=== PATIENT | female | born 1950 | race Caucasian/White ===

== ENCOUNTER 2018-11-19 19:44 | Inpatient (IN) | payer MEDICARE ==
[~2018-11-19] VITALS: Ht 165.1 cm; Wt 68.0 kg
[2018-11-19 20:15] VITALS: BP 90/60
--- NOTE | 2018-11-19 20:15 | Emergency Room Report ---
History of Present Illness General Chief Complaint: Gastrointestinal Bleed Source: Patient Present Illness HPI Patient is a 68-year-old female presented after increased melanotic stool. Patient had reportedly had increased christos melena yesterday. She had not been vomiting. She had recently been taking aspirin. She denies any fever. She denies any significant pain. She had previously been noted to have prior history of kidney stones. She had recently seen her primary care physician Dr. Méndez Allergies: Coded Allergies: CODEINE (Verified Adverse Reaction, Intermediate, 11/19/18) Patient History Past Medical History: see triage record Last Menstrual Period: NA Now: No : 7 Para: 4 Reviewed Nursing Documentation: PMH: Agreed; PSxH: Agreed Nursing Documentation-PMH Past Medical History: No Stated History Review of Systems All Other Systems: negative except mentioned in HPI Physical Exam Vital Signs Date Time Temp Pulse Resp B/P (MAP) Pulse Ox O2 Delivery O2 Flow Rate FiO2 11/19/18 19:49 98.1 104 16 90/60 (70) 96 Room Air Sp02 EP Interpretation: reviewed, normal General Appearance: normal inspection, well appearing, no apparent distress, alert, GCS 15, non-toxic Head: atraumatic ENT: normal ENT inspection, hearing grossly normal, normal voice Neck: normal inspection, full range of motion, supple, no bony tend Respiratory: normal inspection, lungs clear, normal breath sounds, no respiratory distress, no retraction, no wheezing Cardiovascular #1: regular rate, rhythm, no edema Gastrointestinal: normal inspection, normal bowel sounds, non tender, soft, no guarding, no hernia Genitourinary: no CVA tenderness Musculoskeletal: normal inspection, back normal, normal range of motion Neurologic: normal inspection, alert, oriented x3, responsive, wool puller III-XII nml as tested, speech normal Psychiatric: normal inspection, judgement/insight normal, mood/affect normal Skin: normal inspection, normal color, no rash Medical Decision Making Diagnostic Impression: Primary Impression: Gastrointestinal hemorrhage ER Course Patient presented for increased melanotic stools. Differential diagnosis include was not limited to diverticular bleeding, colitis, peptic ulcer disease , arteriovenous malformation among others. Because of complexity of patient's case laboratory testing and imaging studies were ordered. Patient was noted to be initially slightly hypotensive and tachycardic. Patient was started on IV fluids as well as IV Pepcid. EKG interpreted by me showed Normal sinus rhythm without acute ST or T wave changes. Laboratory testing showed some elevation of Bun consistent with recent bleeding. Patient was endorsed to Dr. Clay pending authorization for admission. Last Vital Signs Date Time Temp Pulse Resp B/P (MAP) Pulse Ox O2 Delivery O2 Flow Rate FiO2 11/19/18 19:49 98.1 104 16 90/60 (70) 96 Room Air Status: improved Disposition: ADMITTED INPATIENT Condition: Serious Scott Tolentino MD Nov 19, 2018 20:14
--- NOTE | 2018-11-19 20:20 | NUR ---
ED Nurse Note: Patient walked in to ER from home c/o upper abdominal pain 09/12. Per patient she saw blood in her stool today, and it was dark red. AAO x4, VSS at this time, skin is dry, warm to touch.
[2018-11-19 20:52] LABS: BASOPHILS % (AUTO) 1.4 % (0.0-2.0); EOSINOPHILS % (AUTO) 1.5 % (0.0-3.0); HEMATOCRIT 30.8 % (37.0-47.0); HEMOGLOBIN 10.5 G/DL (12.0-16.0); LYMPHOCYTES % (AUTO) 44.7 % (20.0-45.0); MEAN CORPUSCULAR VOLUME 87 FL (80-99); MONOCYTES % (AUTO) 6.6 % (1.0-10.0); NEUTROPHILS % (AUTO) 45.8 % (45.0-75.0); PLATELET COUNT 258 K/UL (150-450); RED BLOOD COUNT 3.52 M/UL (4.20-5.40); RED CELL DISTRIBUTION WIDTH 12.3 % (11.6-14.8); WHITE BLOOD COUNT 4.7 K/UL (4.8-10.8)
[2018-11-19 20:58] LABS: ANION GAP 9 mmol/L (5-15); BLOOD UREA NITROGEN 37 mg/dL (7-18); CALCIUM 8.7 MG/DL (8.5-10.1); CARBON DIOXIDE 29 MMOL/L (21-32); CHLORIDE 100 MMOL/L (98-107); CREATININE 0.7 MG/DL (0.55-1.30); POTASSIUM 3.7 MMOL/L (3.5-5.1); SODIUM 138 MMOL/L (136-145)
[2018-11-19 21:03] LABS: ALANINE AMINOTRANSFERASE 20 U/L (12-78); ALBUMIN 3.8 G/DL (3.4-5.0); ALBUMIN/GLOBULIN RATIO 1.4 (1.0-2.7); ALKALINE PHOSPHATASE 75 U/L (46-116); ASPARTATE AMINO TRANSFERASE 16 U/L (15-37); BILIRUBIN,TOTAL 0.3 MG/DL (0.2-1.0)
[2018-11-19 22:00] LABS: APPEARANCE,URINE CLEAR; BILIRUBIN, URINE NEGATIVE (NEGATIVE); COLOR,URINE PALE YELLOW; GLUCOSE, URINE (UA) 4+ (NEGATIVE); KETONES,URINE NEGATIVE (NEGATIVE); LEUKOCYTE ESTERASE ,URINE NEGATIVE (NEGATIVE); NITRITE,URINE NEGATIVE (NEGATIVE); PH,URINE 5 (4.5-8.0); PROTEIN,URINE NEGATIVE (NEGATIVE); UROBILINOGEN,URINE NORMAL MG/DL (0.0-1.0)
--- NOTE | 2018-11-19 23:10 | NUR ---
NURSE NOTES: Received pt from ED via gurney. Pt transferred to unit and bed without any incident. Family at bedside. Pt is A/Ox4. Ong pt to unit, room, and hospital policies. Received report from NAMAN Moody. medical radiation dosimetrist is in placed, IV site intact, asymptomatic, and patent. Bed is in the lowest position and locked. Call light within reach. Belongings list checked. No signs/symptoms of acute distress noted at this time. Received admission orders from Dr. Ocampo.
[2018-11-19] MEDS: D5NS 1,000 ML IV SCH (23:54)
[2018-11-20] VITALS (11 sets, daily range): BP systolic 90–115; BP diastolic 52–83
--- NOTE | 2018-11-20 01:43 | NUR ---
ED Nurse Note: Patient was admited and transfered to [facility], due to lower GI bleeding. Patient was transfered via gurney by ACLS protocol, with all belongings. AAO x4, VSS at this time.
[2018-11-20 06:42] LABS: HEMATOCRIT 26.8 % (37.0-47.0); MEAN CORPUSCULAR VOLUME 91 FL (80-99); PLATELET COUNT 236 K/UL (150-450); RED BLOOD COUNT 2.94 M/UL (4.20-5.40); RED CELL DISTRIBUTION WIDTH 12.9 % (11.6-14.8); WHITE BLOOD COUNT 3.1 K/UL (4.8-10.8)
[2018-11-20] MEDS ORDERED: fentaNYL 100 mcg/2 mL IV PRN (07:00)
[2018-11-20] MEDS ORDERED: DiphenhydrAMINE 50mg/ml Inj IVP PRN (07:00)
[2018-11-20] MEDS ORDERED: Midazolam 2mg/2ml Inj IVP PRN (07:00)
[2018-11-20] MEDS ORDERED: Atropine Sulfate 0.4mg/ml inj IVP PRN (07:00)
--- NOTE | 2018-11-20 07:13 | Anethesia Preoperative Eval ---
Anesthesia Pre-op PMH/ROS General Date of Evaluation: Nov 20, 2018 Time of Evaluation: 07:02 Anesthesiologist: matt ASA Score: ASA 2 - kidney stones Mallampati Score Class I : Soft palate, uvula, fauces, pillars visible Class II: Soft palate, uvula, fauces visible Class III: Soft palate, base of uvula visible Class IV: Only hard plate visible Mallampati Classification: Class II Surgeon: cinthya Diagnosis: gi bleed Surgical Procedure: egd Anesthesia History: none Social History: smoking - nonsmoker Family History: no anesthesia problems Allergies: Coded Allergies: NIACIN (Verified Allergy, Unknown, 11/20/18) CODEINE (Verified Adverse Reaction, Intermediate, 11/19/18) Medications: see eMAR Patient NPO?: Yes Past Medical History Gastrointestinal/Genitourinary: Reports: other - nephrolithiasis Anesthesia Pre-op Phys. Exam Physician Exam Last Vital Signs Date Time Temp Pulse Resp B/P (MAP) Pulse Ox O2 Delivery O2 Flow Rate FiO2 11/20/18 04:00 98.4 92 18 90/52 (65) 100 11/20/18 01:39 Room Air Constitutional: NAD Neurologic: CN 2-12 intact Cardiovascular: RRR Respiratory: CTA Gastrointestinal: S/NT/ND Airway Exam Mallampati Score: Class II MO: limited Neck: flexible TMD: 2fb ROM: limited Anesthesia Pre-op A/P Labs Hematology Test 11/19/18 20:28 11/20/18 06:00 White Blood Count 4.7 K/UL (4.8-10.8) L Pending Red Blood Count 3.52 M/UL (4.20-5.40) L Pending Hemoglobin 10.5 G/DL (12.0-16.0) L Pending Hematocrit 30.8 % (37.0-47.0) L Pending Mean Corpuscular Volume 87 FL (80-99) Pending Mean Corpuscular Hemoglobin 29.9 PG (27.0-31.0) Pending Mean Corpuscular Hemoglobin Concent 34.2 G/DL (32.0-36.0) Pending Red Cell Distribution Width 12.3 % (11.6-14.8) Pending Platelet Count 258 K/UL (150-450) Pending Mean Platelet Volume 4.7 FL (6.5-10.1) L Pending Neutrophils (%) (Auto) 45.8 % (45.0-75.0) Pending Lymphocytes (%) (Auto) 44.7 % (20.0-45.0) Pending Monocytes (%) (Auto) 6.6 % (1.0-10.0) Pending Eosinophils (%) (Auto) 1.5 % (0.0-3.0) Pending Basophils (%) (Auto) 1.4 % (0.0-2.0) Pending Coagulation Test 11/19/18 20:28 Prothrombin Time 10.2 SEC (9.30-11.50) Prothromb Time International Ratio 1.0 (0.9-1.1) Activated Partial Thromboplast Time 27 SEC (23-33) Chemistry Test 11/19/18 20:28 11/20/18 06:00 Sodium Level 138 MMOL/L (136-145) Pending Potassium Level 3.7 MMOL/L (3.5-5.1) Pending Chloride Level 100 MMOL/L (98-107) Pending Carbon Dioxide Level 29 MMOL/L (21-32) Pending Anion Gap 9 mmol/L (5-15) Blood Urea Nitrogen 37 mg/dL (7-18) H Pending Creatinine 0.7 MG/DL (0.55-1.30) Pending Estimat Glomerular Filtration Rate > 60 mL/min (>60) Pending Glucose Level 119 MG/DL (74-106) H Pending Calcium Level 8.7 MG/DL (8.5-10.1) Pending Total Bilirubin 0.3 MG/DL (0.2-1.0) Aspartate Amino Transf (AST/SGOT) 16 U/L (15-37) Alanine Aminotransferase (ALT/SGPT) 20 U/L (12-78) Alkaline Phosphatase 75 U/L (46-116) Troponin I 0.000 ng/mL (0.000-0.056) Total Protein 6.5 G/DL (6.4-8.2) Albumin 3.8 G/DL (3.4-5.0) Globulin 2.7 g/dL Albumin/Globulin Ratio 1.4 (1.0-2.7) Studies Pre-op Studies: EKG - nsr Risk Assessment & Plan Assessment: asa2 Plan: mac Status Change Before Surgery: No Pre-Antibiotics Drug: Glenda Leary MD Nov 20, 2018 07:13
[2018-11-20 07:16] LABS: ANION GAP 12 mmol/L (5-15); BLOOD UREA NITROGEN 23 mg/dL (7-18); CALCIUM 8.1 MG/DL (8.5-10.1); CARBON DIOXIDE 23 MMOL/L (21-32); CHLORIDE 109 MMOL/L (98-107); CREATININE 0.5 MG/DL (0.55-1.30); POTASSIUM 3.3 MMOL/L (3.5-5.1); SODIUM 144 MMOL/L (136-145)
--- NOTE | 2018-11-20 07:40 | NUR ---
HAND-OFF: Report given to NAMAN Fitzgerald.
--- NOTE | 2018-11-20 07:41 | NUR ---
NURSE NOTES: Report received from NAMAN uHerta. Pt is resting in bed, sleeping. Breathing is even and unlabored in room air. No acute distress noted at this time. Will report the doctor abnormal potassium value. Bed in lowest position with brake engaged and side rails up x2. Call light and side table placed within reach. Will continue to monitor.
[2018-11-20] MEDS: D5NS 1,000 ML IV SCH ×2 (09:31→18:40)
--- NOTE | 2018-11-20 09:55 | GI Initial Consult Note ---
History of Present Illness General Date patient seen: Nov 20, 2018 Time patient seen: 09:52 Reason for Hospitalization: Gastrointestinal Bleed Referring physician: APRIL SALAS Reason for Consultation: GI BLEED Present Illness HPI Patient is a 68-year-old female presented after increased melanotic stool. Patient had reportedly had increased christos melena yesterday. She had not been vomiting. She had recently been taking aspirin. She denies any fever. She denies any significant pain. She had previously been noted to have prior history of kidney stones. She had recently seen her primary care physician Dr. Honey MCMILLAN consulted for reported melena. Pt seen, awake A&Ox4 NAD appeared very anxious. Patient reported episodes of melena. Has complaint of nausea without vomiting. Presents today with Hgb of 9.0. Potassium of 3.3 No known history of endoscopy. Allergies: Coded Allergies: NIACIN (Verified Allergy, Unknown, 11/20/18) CODEINE (Verified Adverse Reaction, Intermediate, 11/19/18) Patient History History Provided By: Patient, Medical Record PMH Narrative Past Medical History: see triage record Last Menstrual Period: NA Now: No : 7 Para: 4 Reviewed Nursing Documentation: PMH: Agreed; PSxH: Agreed Nursing Documentation-PMH Past Medical History: No Stated History Social History: Denies: smoking, alcohol use, drug use, other Review of Systems All Other Systems: negative except mentioned in HPI Physical Exam Vital Signs Date Time Temp Pulse Resp B/P (MAP) Pulse Ox O2 Delivery O2 Flow Rate FiO2 11/19/18 19:49 98.1 104 16 90/60 (70) 96 Room Air Sp02 EP Interpretation: reviewed, normal Labs Laboratory Tests Test 11/19/18 20:28 11/19/18 21:30 11/20/18 06:00 White Blood Count 4.7 K/UL (4.8-10.8) L 3.1 K/UL (4.8-10.8) L Red Blood Count 3.52 M/UL (4.20-5.40) L 2.94 M/UL (4.20-5.40) L Hemoglobin 10.5 G/DL (12.0-16.0) L 9.0 G/DL (12.0-16.0) L Hematocrit 30.8 % (37.0-47.0) L 26.8 % (37.0-47.0) L Mean Corpuscular Volume 87 FL (80-99) 91 FL (80-99) Mean Corpuscular Hemoglobin 29.9 PG (27.0-31.0) 30.7 PG (27.0-31.0) Mean Corpuscular Hemoglobin Concent 34.2 G/DL (32.0-36.0) 33.7 G/DL (32.0-36.0) Red Cell Distribution Width 12.3 % (11.6-14.8) 12.9 % (11.6-14.8) Platelet Count 258 K/UL (150-450) 236 K/UL (150-450) Mean Platelet Volume 4.7 FL (6.5-10.1) L 5.8 FL (6.5-10.1) L Neutrophils (%) (Auto) 45.8 % (45.0-75.0) % (45.0-75.0) Lymphocytes (%) (Auto) 44.7 % (20.0-45.0) % (20.0-45.0) Monocytes (%) (Auto) 6.6 % (1.0-10.0) % (1.0-10.0) Eosinophils (%) (Auto) 1.5 % (0.0-3.0) % (0.0-3.0) Basophils (%) (Auto) 1.4 % (0.0-2.0) % (0.0-2.0) Prothrombin Time 10.2 SEC (9.30-11.50) Prothromb Time International Ratio 1.0 (0.9-1.1) Activated Partial Thromboplast Time 27 SEC (23-33) Sodium Level 138 MMOL/L (136-145) 144 MMOL/L (136-145) Potassium Level 3.7 MMOL/L (3.5-5.1) 3.3 MMOL/L (3.5-5.1) L Chloride Level 100 MMOL/L (98-107) 109 MMOL/L (98-107) H Carbon Dioxide Level 29 MMOL/L (21-32) 23 MMOL/L (21-32) Anion Gap 9 mmol/L (5-15) 12 mmol/L (5-15) Blood Urea Nitrogen 37 mg/dL (7-18) H 23 mg/dL (7-18) H Creatinine 0.7 MG/DL (0.55-1.30) 0.5 MG/DL (0.55-1.30) L Estimat Glomerular Filtration Rate > 60 mL/min (>60) > 60 mL/min (>60) Glucose Level 119 MG/DL (74-106) H 108 MG/DL (74-106) H Calcium Level 8.7 MG/DL (8.5-10.1) 8.1 MG/DL (8.5-10.1) L Total Bilirubin 0.3 MG/DL (0.2-1.0) Aspartate Amino Transf (AST/SGOT) 16 U/L (15-37) Alanine Aminotransferase (ALT/SGPT) 20 U/L (12-78) Alkaline Phosphatase 75 U/L (46-116) Troponin I 0.000 ng/mL (0.000-0.056) Total Protein 6.5 G/DL (6.4-8.2) Albumin 3.8 G/DL (3.4-5.0) Globulin 2.7 g/dL Albumin/Globulin Ratio 1.4 (1.0-2.7) Urine Color Pale yellow Urine Appearance Clear Urine pH 5 (4.5-8.0) Urine Specific [place] 1.010 (1.005-1.035) Urine Protein Negative (NEGATIVE) Urine Glucose (UA) 4+ (NEGATIVE) H Urine Ketones Negative (NEGATIVE) Urine Blood Negative (NEGATIVE) Urine Nitrite Negative (NEGATIVE) Urine Bilirubin Negative (NEGATIVE) Urine Urobilinogen Normal MG/DL (0.0-1.0) Urine Leukocyte Esterase Negative (NEGATIVE) Urine RBC 0 /HPF (0 - 2) Urine WBC 0 /HPF (0 - 2) Urine Squamous Epithelial Cells Occasional /LPF Urine Bacteria None /HPF (NONE) Neutrophils % (Manual) Pending Lymphocytes % (Manual) Pending Platelet Estimate Pending Platelet Morphology Pending General Appearance: well appearing, no apparent distress, alert Head: normocephalic EENT: PERRL/EOMI, normal ENT inspection Neck: supple Respiratory: normal breath sounds, no respiratory distress Cardiovascular: normal rate Gastrointestinal: normal inspection, non tender, soft, normal bowel sounds, non -distended Rectal: deferred Genitourinary: no CVA tenderness Musculoskeletal: normal inspection, back normal Neurologic: normal inspection, alert, oriented x3, responsive Psychiatric: normal inspection, judgement/insight normal, memory normal Skin: normal inspection, normal color, no rash, warm/dry, palpation normal, well hydrated Lymphatic: normal inspection, no adenopathy Current Medications Current Medications Medications (Trade) Dose Ordered Sig/Richi Route PRN Reason Start Time Stop Time Status Last Admin Dose Admin Acetaminophen (Tylenol) 650 mg Q4H PRN ORAL Mild Pain (Pain Scale 1-3) 11/19/18 22:30 12/19/18 22:29 11/20/18 09:30 Al Hydroxide/Mg Hydroxide (Mylanta) 15 ml Q1H PRN ORAL gi upset 11/20/18 07:00 11/20/18 15:00 Atropine Sulfate (Atropine 0.4mg/ ml) 0.5 mg Q5M PRN IVP bpm less than 45 11/20/18 07:00 11/20/18 15:00 Dextrose (Dextrose 50%) 25 ml Q30M PRN IV Hypoglycemia 11/19/18 22:30 12/19/18 22:29 Dextrose (Dextrose 50%) 50 ml Q30M PRN IV Hypoglycemia 11/19/18 22:30 12/19/18 22:29 Dextrose/Sodium Chloride 1,000 ml @ 100 mls/hr Q10H IV 11/19/18 23:17 12/19/18 23:16 11/20/18 09:31 Diphenhydramine HCl (Benadryl) 25 mg Q15M PRN IVP Itching 11/20/18 07:00 11/20/18 15:00 Famotidine (Pepcid) 40 mg DAILY ORAL 11/20/18 09:00 12/20/18 08:59 11/20/18 09:31 Fentanyl Citrate (Sublimaze 100 mcg/2 mL) 25 mcg Q10M PRN IV Moderate Pain (Pain Scale 4-6) 11/20/18 07:00 11/20/18 15:00 Hydralazine HCl (Apresoline) 5 mg Q30M PRN IV SBP>160 /DBP>90 11/20/18 07:00 11/20/18 15:00 Midazolam HCl (Versed 2mg/2ml vial) 1 mg Q15M PRN IVP For Anxiety 11/20/18 07:00 11/20/18 15:00 Ondansetron HCl (Zofran) 4 mg Q1H PRN IVP Nausea & Vomiting 11/20/18 07:00 11/20/18 15:00 Ondansetron HCl (Zofran) 4 mg Q6H PRN IVP Nausea & Vomiting 11/19/18 22:30 12/19/18 22:29 GI: Plan Problems: (1) Gastrointestinal hemorrhage (2) Anemia Plan EGD scheduled for today. - maintain NPO + IVFs - hold all blood thinners prn transfusions ppi will follow with additional recommendations post procedure Discussed with Dr. Rodgers. Thank you for this patient referral, we will follow. The patient was seen and examined at bedside and all new and available data was reviewed in the patients chart. I agree with the above findings, impression and plan. (Patient seen earlier today. Signature stamp does not reflect patient encounter time.). - MD Mary Perez,[facility] EXECUTIVE ADMIN Nov 20, 2018 09:55
[2018-11-20] MEDS ORDERED: Propofol 200mg/20ml IV ONE (10:00)
[2018-11-20] MEDS ORDERED: Lidocaine 1% MPF 10mg/ml 5ml ONE (10:00)
[2018-11-20] MEDS ORDERED: NS 500ML IVPB ONE (10:28)
--- NOTE | 2018-11-20 10:56 | Pre-Procedure Note/Attestation ---
Pre-Procedure Note/Attestation Complete Prior to Procedure Planned Procedure: not applicable Procedure Narrative: EGD Indications for Procedure Pre-Operative Diagnosis: GIB Attestation I attest that I discussed the nature of the procedure; its benefits; risks and complications; and alternatives (and the risks and benefits of such alternatives ), prior to the procedure, with the patient (or the patient's legal sales representative [employer]). I attest that, if there was a reasonable possibility of needing a blood transfusion, the patient (or the patient's legal sales representative [employer]) was given the [facility] standardized written summary, pursuant to the [employer] [place] Blood Safety Act ([place] Health and Safety Code # 1645, as amended). I attest that I re-evaluated the patient just prior to the surgery and that there has been no change in the patient's H&P, except as documented below: Julio C Rodgers MD Nov 20, 2018 10:56
--- NOTE | 2018-11-20 11:06 | Endoscopy Procedure Note ---
Endoscopy Procedure Note General Indication for Procedure: GIB Procedures Performed: EGD Operative Findings/Diagnosis: gu Specimen: yes Pt Tolerated Procedure Well: Yes Estimated Blood Loss: none Anesthesia Anesthesiologist: LINDY Anesthesia: MAC Inserted Devices Implant(s) used?: No GI Core Measures 50 yrs or older w/o bx or poly: Not Applicable 10yrs. F/U recommended: Not Applicable Julio C Rodegrs MD Nov 20, 2018 11:06
--- NOTE | 2018-11-20 11:15 | History and Physical Report ---
DATE OF ADMISSION: 11/19/2018 REASON FOR ADMISSION: Gastrointestinal bleed. HISTORY OF PRESENT ILLNESS: The patient is a 68-year-old female, who presented complaining of dark tarry melanotic stool. The patient stated that it had increased in frequency over the day prior to onset, she presented to emergency room for further evaluation and care. No nausea or vomiting. No chest pain. The patient has been taking some aspirin. She was feeling otherwise well. No shortness of breath. ALLERGIES: Codeine. PAST MEDICAL HISTORY: None. FAMILY HISTORY: Positive for hypertension. PAST SURGICAL HISTORY: Noncontributory. REVIEW OF SYSTEMS: NEUROLOGIC: The patient denies headache, change in vision, syncope, or presyncopal episodes. CARDIOVASCULAR: No current chest pain, palpitations, or angina. PULMONARY: No difficulty breathing, productive cough, sputum. GASTROINTESTINAL/GENITOURINARY: The patient having dark tarry black stools. No nausea, vomiting, or diarrhea. ENDOCRINOLOGY: No night sweats, fevers, or chills. MUSCULOSKELETAL: The patient feeling tired and fatigue. LABORATORY DATA: Laboratories dated November 19, 2018, sodium 138, potassium 3.7, creatinine 0.7, BUN 37. Troponin 0. White cell count 4.7, hemoglobin 10.5, and platelet count 258. PHYSICAL EXAMINATION: VITAL SIGNS: Blood pressure 90/52, respiratory rate 12, pulse 92, temperature 98.4, and 100% oxygen saturation on room air. GENERAL: The patient awake, alert, otherwise in distress. HEENT: Extraocular muscles intact. No lymphadenopathy noted. CARDIOVASCULAR: S1, S2. No rubs or gallops. PULMONARY: Clear to auscultation bilaterally. No rales, rhonchi, or wheezes. ABDOMEN: Nondistended and nontender. EXTREMITIES: No edema noted. ASSESSMENT AND PLAN: 1. Gastrointestinal bleed. Dark tarry melanotic stools. Gastroenterology has been consulted and colonoscopy and EGD is pending. The patient is NPO. Hemoglobin currently stable 10.5. 2. DVT prophylaxis with SCDs. 3. GI prophylaxis with famotidine. Johnathan Ocampo MD DR: JULIAN/RASTA JOB#: [id number] CC:
--- NOTE | 2018-11-20 11:48 | NUR ---
NURSE NOTES: Or Nurse (Jose) and gave report for Mrs. Batista, S/P EGD with Biopsy patient has gastritis and gastric ulcer. Patient will start Regular diet. New RX in chart. Vital sign stable.
--- NOTE | 2018-11-20 12:33 | Immediate Post-Op Evaluation ---
Immediate Post-Op Evalulation Immediate Post-Op Evalulation Procedure: egd w/bx Date of Evaluation: Nov 20, 2018 Time of Evaluation: 11:26 IV Fluids: 150ml 0.9ns Blood Products: none Estimated Blood Loss: negligible Blood Pressure Systolic: 95 Blood Pressure Diastolic: 63 Pulse Rate: 91 Respiratory Rate: 18 O2 Sat by Pulse Oximetry: 100 Temperature (Fahrenheit): 97.8 Pain Score (1-10): 0 Nausea: No Vomiting: No Complications none Patient Status: awake, reacts, patent Hydration Status: adequate Drug: Glenda Leary MD Nov 20, 2018 12:33
--- NOTE | 2018-11-20 12:35 | 48 Hour Post Anesthesia Eval ---
Post Anesthesia Evaluation Procedure: egd w/bx Date of Evaluation: Nov 20, 2018 Time of Evaluation: 11:28 Blood Pressure Systolic: 100 0: 62 Pulse Rate: 81 Respiratory Rate: 18 Temperature (Fahrenheit): 97.8 O2 Sat by Pulse Oximetry: 100 Airway: patent Nausea: No Vomiting: No Pain Intensity: 0 Hydration Status: adequate Cardiopulmonary Status: stable Mental Status/LOC: patient returned to baseline Post-Anesthesia Complications: none Follow-up care needed: N/A Glenda Hills MD Nov 20, 2018 12:35
--- NOTE | 2018-11-20 13:22 | Discharge Instructions ---
Discharge Instructions Discharge Instructions Services at Discharge: day care Diet: regular Resume Normal Activity?: Yes Activity: light activity Follow Up Orders Follow up with PCP 1 week For Congestive Heart Failure Reminder Report to your physician any weight gain of 5 pounds or more in one week. Johnathan Ocampo MD Nov 20, 2018 13:22
--- NOTE | 2018-11-20 15:44 | NUR ---
CASE MANAGEMENT:REVIEW 68 YR OLD FEMALE FROM HOME TO ER CC; BLOOD IN STOOL. RT ARM PAIN. HEADACHE. ABDOMINAL PAIN SI: LGIB 98.0 104 16 90/60 96% ON RA H/H-10.5/30.8 IS: 1L NS BOLUS IV PEPCID : TO TELEMETRY IS: EGD
[2018-11-20] MEDS ORDERED: Bisacodyl EC 5mg tab ORAL ONE (16:00)
--- NOTE | 2018-11-20 16:00 | Procedure Note ---
DATE OF PROCEDURE: 11/20/2018 SURGEON: Julio C Rodgers M.D. PROCEDURE: Upper endoscopy with biopsy. ANESTHESIA: Per Dr. Glenda Mojica. INSTRUMENT: Olympus adult flexible upper endoscope. INDICATION: GI bleeding. REASON FOR PROCEDURE: The procedure, risks, benefits, and possible consequences, including hemorrhage, aspiration, perforation and infection, and alternative treatments, were explained to the patient/legal guardian by Dr. Julio C Rodgers and the patient/legal guardian understood and accepted these risks. PROCEDURE IN DETAIL: After informed consent was obtained and the patient was adequately sedated, Olympus upper endoscope was advanced from mouth into the second portion of duodenum and retroflexion was performed in the stomach. The patient had a shallow small less than 1 cm ulcer in the prepyloric region at about 9 o'clock position without any adherent clot or visible vessel. There was also some evidence of gastritis. Random biopsy from antrum and body was obtained to evaluate for H. pylori infection. No evidence of any other source for bleeding. The patient tolerated the procedure very well without any complication. SUMMARY OF FINDINGS: 1. Small gastric ulcer clean base without any visible vessel or adherent clot. 2. Gastritis status post biopsy. RECOMMENDATIONS: Start diet and advance as tolerated. The patient to be on a PPI daily. Follow up biopsy results and treat for H. pylori if it is positive. The patient to follow up with Dr. Méndez, her primary nutritional health coach as an outpatient. Julio C Rodgers M.D. DR: SAMMI JOB#: [id number] CC:
--- NOTE | 2018-11-20 16:03 | Cardiology Report ---
APPROVED REPORT EKG Measurement Heart [id number] Normal sinus rhythm Normal ECG
[2018-11-20] MEDS: Nulytely 4L ORAL ONE ×2 (16:40→17:05)
--- NOTE | 2018-11-20 19:25 | NUR ---
HAND-OFF: Report given to NAMAN De Leon.
--- NOTE | 2018-11-20 19:26 | NUR ---
NURSE NOTES: Received pt from NAMAN Boles. Pt is awake and resting in bed. IV site intact. Pt in no distress. Bed in lowest position, call light within reach, bed in lowest position. Will continue with plan of care.
[2018-11-20] MEDS ORDERED: Polyethylene Glycol 238gm bottle ORAL SCH (20:00)
[2018-11-20] MEDS ORDERED: Magnesium Citrate Liq Btl ORAL SCH (20:30)
[2018-11-20] MEDS ORDERED: Fleet's Enema 133ml RECTAL ONE (23:00)
[2018-11-20] MEDS ORDERED: HYDROcodone/Acetamin 5/325 tab ORAL PRN (23:45)
[2018-11-21] VITALS (7 sets, daily range): BP systolic 95–114; BP diastolic 55–69
[2018-11-21] MEDS ORDERED: traMADol 50mg tab ORAL PRN
[2018-11-21 05:17] LABS: BASOPHILS % (AUTO) 0.9 % (0.0-2.0); EOSINOPHILS % (AUTO) 1.8 % (0.0-3.0); HEMATOCRIT 26.8 % (37.0-47.0); HEMOGLOBIN 8.8 G/DL (12.0-16.0); LYMPHOCYTES % (AUTO) 28.7 % (20.0-45.0); MEAN CORPUSCULAR VOLUME 91 FL (80-99); MONOCYTES % (AUTO) 5.1 % (1.0-10.0); NEUTROPHILS % (AUTO) 63.5 % (45.0-75.0); PLATELET COUNT 247 K/UL (150-450); RED BLOOD COUNT 2.95 M/UL (4.20-5.40); RED CELL DISTRIBUTION WIDTH 12.7 % (11.6-14.8); WHITE BLOOD COUNT 3.7 K/UL (4.8-10.8)
[2018-11-21] MEDS: D5NS 1,000 ML IV SCH (05:17)
[2018-11-21 05:38] LABS: ANION GAP 7 mmol/L (5-15); BLOOD UREA NITROGEN 8 mg/dL (7-18); CALCIUM 8.1 MG/DL (8.5-10.1); CARBON DIOXIDE 29 MMOL/L (21-32); CHLORIDE 108 MMOL/L (98-107); CREATININE 0.6 MG/DL (0.55-1.30); POTASSIUM 3.5 MMOL/L (3.5-5.1); SODIUM 144 MMOL/L (136-145)
--- NOTE | 2018-11-21 07:01 | Nephrology Progress Note ---
Assessment/Plan Assessment/Plan: A/P 1) Anemia - EGD with ulcer and gastristis - colonoscopy today - DC afterwards if cleared by GI 2) Dehydrations- IVFs DC today post colonoscopy Subjective Date patient seen: Nov 21, 2018 Time patient seen: 06:59 ROS Limited/Unobtainable: No Allergies: Coded Allergies: NIACIN (Verified Allergy, Unknown, 11/20/18) CODEINE (Verified Adverse Reaction, Intermediate, 11/19/18) Subjective Patient awaiting colonoscopy. Objective Last 24 Hour Vital Signs Date Time Temp Pulse Resp B/P (MAP) Pulse Ox O2 Delivery O2 Flow Rate FiO2 11/21/18 04:00 92 11/21/18 04:00 97.7 92 19 96/62 (73) 99 11/21/18 00:00 85 11/21/18 00:00 97.6 85 19 114/69 (84) 100 11/20/18 21:00 Room Air 11/20/18 20:00 85 11/20/18 20:00 97.4 85 19 115/67 (83) 99 11/20/18 16:00 97.2 82 16 93/60 (71) 98 11/20/18 16:00 84 11/20/18 12:35 81 18 100 11/20/18 12:33 91 18 100 11/20/18 12:00 97 11/20/18 11:44 98.0 80 16 103/83 100 Nasal Cannula 3 11/20/18 11:34 79 18 103/71 100 Nasal Cannula 3 11/20/18 11:24 81 15 100/62 100 Nasal Cannula 3 11/20/18 11:19 82 17 97/67 100 Nasal Cannula 3 11/20/18 11:14 97.8 91 18 95/63 100 Nasal Cannula 3 11/20/18 09:00 Room Air 11/20/18 08:00 88 11/20/18 08:00 97.7 90 16 93/65 (74) 99 Intake and Output 11/20/18 11/21/18 18:59 06:59 Intake Total 590 ml Balance 590 ml Intake Oral 440 ml IV Total 150 ml # Voids 2 Laboratory Tests 11/21/18 04:53: White Blood Count 3.7L, Red Blood Count 2.95L, Hemoglobin 8.8L, Hematocrit 26.8L , Mean Corpuscular Volume 91, Mean Corpuscular Hemoglobin 29.7, Mean Corpuscular Hemoglobin Concent 32.8, Red Cell Distribution Width 12.7, Platelet Count 247, Mean Platelet Volume 5.6L, Neutrophils (%) (Auto) 63.5, Lymphocytes ( %) (Auto) 28.7, Monocytes (%) (Auto) 5.1, Eosinophils (%) (Auto) 1.8, Basophils (%) (Auto) 0.9, Prothrombin Time 10.4, Prothromb Time International Ratio 1.0, Activated Partial Thromboplast Time 22L, Sodium Level 144, Potassium Level 3.5, Chloride Level 108H, Carbon Dioxide Level 29, Anion Gap 7, Blood Urea Nitrogen 8 , Creatinine 0.6, Estimat Glomerular Filtration Rate > 60, Glucose Level 113H, Calcium Level 8.1L Height (Feet): 5 Height (Inches): 5.00 Weight (Pounds): 149 General Appearance: no apparent distress, alert EENT: normal ENT inspection Neck: normal alignment, supple Cardiovascular: normal rate, regular rhythm Respiratory/Chest: lungs clear, normal breath sounds Abdomen: non tender, soft Edema: no edema noted Arm (L), no edema noted Arm (R), no edema noted Leg (L), no edema noted Leg (R), no edema noted Pedal (L), no edema noted Pedal (R), no edema noted Generalized Johnathan Ocampo MD Nov 21, 2018 07:01
--- NOTE | 2018-11-21 07:32 | NUR ---
HAND-OFF: Report given to NAMAN Keith. Endorsed plan of care.
--- NOTE | 2018-11-21 07:32 | NUR ---
NURSE NOTES: Report received from NAMAN Chavez. Patient AOx4. In RA. Denies any pain or SOB. Aware of Colonoscopy procedure scheduled for today. NPO for procedure. L FA 20g IV running D5NS at 100. Site intact. Bed on lowest position, side rails upx2, brakes engaged. Call light within easy reach.
--- NOTE | 2018-11-21 10:42 | Pre-Procedure Note/Attestation ---
Pre-Procedure Note/Attestation Complete Prior to Procedure Planned Procedure: not applicable Procedure Narrative: colonoscopy Indications for Procedure Pre-Operative Diagnosis: GIB Attestation I attest that I discussed the nature of the procedure; its benefits; risks and complications; and alternatives (and the risks and benefits of such alternatives ), prior to the procedure, with the patient (or the patient's legal product representative). I attest that, if there was a reasonable possibility of needing a blood transfusion, the patient (or the patient's legal product representative) was given the [facility] standardized written summary, pursuant to the [employer] Blood Safety Act ([place] Health and Safety Code # 1645, as amended). I attest that I re-evaluated the patient just prior to the surgery and that there has been no change in the patient's H&P, except as documented below: Julio C Rodgers MD Nov 21, 2018 10:42
[2018-11-21] MEDS ORDERED: NS 500ML IVPB ONE (10:45)
--- NOTE | 2018-11-21 10:45 | CDS Physician Query ---
Clarification is required for compliance, coding accuracy, and to reflect severity of illness for this patient Dear Dr. Julio C Pitts Date: 11/21/2018 Mud Jack Nozzleman/ CDS Name: Anju Oneill Clinical documentation states: 11/20 note: 8-year-old female presented after increased melanotic stool....Presents today with Hgb of 9.0...(1) Gastrointestinal hemorrhage (2) Anemia EGD: Small gastric ulcer clean base without any visible vessel or adherent clot Please clarify the specific type of anemia below: Acuity []Acute []Acute on Chronic []Chronic Etiology [] Blood loss [] ESRD [] Neoplastic disease [] Iron deficiency [] GI Bleeding [] Anemia of chronic disease [] Unable to determine [] Other: Present on Admission: [] Yes [] No [] Clinically Undetermined Physician signature Date Please also document in your Progress Notes and/or Discharge Summary and indicate if the condition was present on admission. MTDD
--- NOTE | 2018-11-21 10:59 | Endoscopy Procedure Note ---
Endoscopy Procedure Note General Indication for Procedure: gib Procedures Performed: colonoscopy Operative Findings/Diagnosis: hemorrhoids Specimen: none Pt Tolerated Procedure Well: Yes Estimated Blood Loss: none Anesthesia Anesthesiologist: yue Anesthesia: MAC Inserted Devices Implant(s) used?: No GI Core Measures 50 yrs or older w/o bx or poly: Not Applicable 10yrs. F/U recommended: Not Applicable Julio C Rodgers MD Nov 21, 2018 10:59
[2018-11-21] MEDS ORDERED: Midazolam 2mg/2ml Inj ONE (11:00)
[2018-11-21] MEDS ORDERED: Propofol 200mg/20ml IV ONE (11:00)
--- NOTE | 2018-11-21 11:00 | Anethesia Preoperative Eval ---
Anesthesia Pre-op PMH/ROS General Date of Evaluation: Nov 21, 2018 Time of Evaluation: 10:32 Anesthesiologist: Hawk ASA Score: ASA 2 Mallampati Score Class I : Soft palate, uvula, fauces, pillars visible Class II: Soft palate, uvula, fauces visible Class III: Soft palate, base of uvula visible Class IV: Only hard plate visible Mallampati Classification: Class II Surgeon: Vishal Diagnosis: GI bleed Surgical Procedure: Colonoscopy Anesthesia History: none Family History: no anesthesia problems Allergies: Coded Allergies: NIACIN (Verified Allergy, Unknown, 11/20/18) CODEINE (Verified Adverse Reaction, Intermediate, 11/19/18) Medications: see eMAR Patient NPO?: Yes Past Medical History Cardiovascular: Reports: HTN; Denies: CAD, SD, valve dz, arrhythmia, other Pulmonary: Denies: asthma, COPD, BREEZY, other Gastrointestinal/Genitourinary: Reports: GERD; Denies: CRI, ESRD, other Neurologic/Psychiatric: Reports: depression/anxiety; Denies: dementia, CVA, TIA, other Endocrine: Denies: DM, hypothyroidism, steroids, other HEENT: Denies: cataract (L), cataract (R), glaucoma, IQUGMIUT (L), IQUGMIUT (R), other Hematology/Immune: Reports: anemia; Denies: DVT, bleeding disorder, other Musculoskeletal/Integumentary: Denies: OA, RA, DJD, DDD, edema, other PMH Narrative: as above PSxH Narrative: see H&P Anesthesia Pre-op Phys. Exam Physician Exam Last Vital Signs Date Time Temp Pulse Resp B/P (MAP) Pulse Ox O2 Delivery O2 Flow Rate FiO2 11/21/18 04:00 92 11/21/18 04:00 97.7 19 96/62 (73) 99 11/20/18 21:00 Room Air 11/20/18 11:44 3 Constitutional: NAD Neurologic: CN 2-12 intact Cardiovascular: RRR, no M/R/G Respiratory: CTA Gastrointestinal: S/NT/ND Airway Exam Mallampati Score: Class II MO: full ROM: full Teeth: missing Dentures: no upper, no lower Anesthesia Pre-op A/P Labs Hematology Test 11/21/18 04:53 White Blood Count 3.7 K/UL (4.8-10.8) L Red Blood Count 2.95 M/UL (4.20-5.40) L Hemoglobin 8.8 G/DL (12.0-16.0) L Hematocrit 26.8 % (37.0-47.0) L Mean Corpuscular Volume 91 FL (80-99) Mean Corpuscular Hemoglobin 29.7 PG (27.0-31.0) Mean Corpuscular Hemoglobin Concent 32.8 G/DL (32.0-36.0) Red Cell Distribution Width 12.7 % (11.6-14.8) Platelet Count 247 K/UL (150-450) Mean Platelet Volume 5.6 FL (6.5-10.1) L Neutrophils (%) (Auto) 63.5 % (45.0-75.0) Lymphocytes (%) (Auto) 28.7 % (20.0-45.0) Monocytes (%) (Auto) 5.1 % (1.0-10.0) Eosinophils (%) (Auto) 1.8 % (0.0-3.0) Basophils (%) (Auto) 0.9 % (0.0-2.0) Coagulation Test 11/21/18 04:53 Prothrombin Time 10.4 SEC (9.30-11.50) Prothromb Time International Ratio 1.0 (0.9-1.1) Activated Partial Thromboplast Time 22 SEC (23-33) L Chemistry Test 11/21/18 04:53 Sodium Level 144 MMOL/L (136-145) Potassium Level 3.5 MMOL/L (3.5-5.1) Chloride Level 108 MMOL/L (98-107) H Carbon Dioxide Level 29 MMOL/L (21-32) Anion Gap 7 mmol/L (5-15) Blood Urea Nitrogen 8 mg/dL (7-18) Creatinine 0.6 MG/DL (0.55-1.30) Estimat Glomerular Filtration Rate > 60 mL/min (>60) Glucose Level 113 MG/DL (74-106) H Calcium Level 8.1 MG/DL (8.5-10.1) L Risk Assessment & Plan Assessment: ASA 2 Plan: MAC Status Change Before Surgery: Noel Rodriguez MD Nov 21, 2018 11:00
--- NOTE | 2018-11-21 11:11 | Immediate Post-Op Evaluation ---
Immediate Post-Op Evalulation Immediate Post-Op Evalulation Procedure: colonoscopy Date of Evaluation: Nov 21, 2018 Time of Evaluation: 11:10 IV Fluids: 500 Blood Products: none Estimated Blood Loss: none Urinary Output: none Blood Pressure Systolic: 94 Blood Pressure Diastolic: 56 Pulse Rate: 72 Respiratory Rate: 20 O2 Sat by Pulse Oximetry: 98 Temperature (Fahrenheit): 97.6 Pain Score (1-10): 1 Nausea: No Vomiting: No Complications none Patient Status: reacts, patent, none Noel Paz MD Nov 21, 2018 11:11
--- NOTE | 2018-11-21 12:12 | 48 Hour Post Anesthesia Eval ---
Post Anesthesia Evaluation Procedure: colonoscopy Date of Evaluation: Nov 21, 2018 Time of Evaluation: 12:11 Blood Pressure Systolic: 104 0: 56 Pulse Rate: 68 Respiratory Rate: 20 Temperature (Fahrenheit): 97.6 O2 Sat by Pulse Oximetry: 98 Airway: patent Nausea: No Vomiting: No Pain Intensity: 1 Hydration Status: adequate Cardiopulmonary Status: stable Mental Status/LOC: patient returned to baseline Follow-up Care/Observations: n/a Post-Anesthesia Complications: none Follow-up care needed: N/A Noel Paz MD Nov 21, 2018 12:12
--- NOTE | 2018-11-21 12:49 | NUR ---
CASE MANAGEMENT:REVIEW 11/21/18 SI: LGIB 97.9 77 14 105/66 100% ON RA H/H-8.8/26.8 CA-8.1 IS: COLONOSCOPY TODAY PEPCID PO QD IVF@100/HR : TELEMETRY STATUS DCP: FROM HOME
--- NOTE | 2018-11-21 13:42 | NUR ---
NURSE NOTES: PT LEFT IN STBLE CONDITION, WITH ALL BELONGINGS, IV REMOVED, PT CANNOT WAIT FOR MD TO SEE HER , HER COMPLAINT IS NO MD HAS SEEN HER , RN ASKED PT IF SHE CAN WAIT, KUSUM LOZENGE MAKER HELPER MADE AWARE AND LOZENGE MAKER HELPER CLEARED PT FOR DC JUST NEEDS FOLLOW UP WITH MD
--- NOTE | 2018-11-21 16:15 | Procedure Note ---
DATE OF PROCEDURE: 11/21/2018 SURGEON: Julio C Rodgers M.D. PROCEDURE: Colonoscopy. ANESTHESIA: Per Noel Paz M.D. INSTRUMENT: Olympus adult flexible colonoscope. INDICATIONS: Rectal bleeding. REASON FOR PROCEDURE: The procedure, risks, benefits, and possible consequences, including hemorrhage, aspiration, perforation and infection, and alternative treatments, were explained to the patient/legal guardian by Dr. Julio C Rodgers and the patient/legal guardian understood and accepted these risks. PROCEDURE IN DETAIL: After informed consent was obtained and the patient was adequately sedated, first rectal exam was performed, which was normal. Then, the scope was advanced from the rectum into the cecum documented by appendiceal orifice, ileocecal valve, and right upper quadrant palpation. Quality of prep was overall poor. There was a lot of dark semi solid fluid throughout the colon. We washed, we cleaned as best as we could. There was no evidence of any active bright red blood or active bleeding in the colon. No evidence of any diverticulosis. No obvious large polyp or ulcer was seen. Retroflexion of rectum was limited given there was poor prep, but we small nonbleeding internal hemorrhoids. SUMMARY OF FINDINGS: 1. Incomplete examination given the poor prep. 2. No evidence of active colonic bleed at this time. 3. Internal hemorrhoids. RECOMMENDATIONS: Advance diet. Given the stable H and H and endoscopy showing possibly gastric ulcer as the source of bleeding, we will recommend the patient to be discharged. Follow as an outpatient with Dr. Méndez. If the patient continues to have bleeding despite treatment for gastric ulcer, we will recommend capsule endoscopy for further evaluation of the GI bleed. I want to thank Dr. Méndez for this kind referral. Julio C Rodgers M.D. DR: Chaka JOB#: [id number] CC: Dr. Méndez
--- NOTE | 2018-11-22 08:50 | Discharge Summary ---
Discharge Summary Discharge Summary _ DATE OF ADMISSION: 11/19/2018 DATE OF DISCHARGE: 11/21/2018 DISCHARGED BY: Dr. Ryan Hair CONSULTANTS: Dr. Julio C Rodgers [facility] HOSPITAL COURSE: Patient is a 68-year-old female, who presented with black, tarry, melanotic stool. Patient stated it increased in frequency. She presented to ED for further evaluation and care. She denied any nausea or vomiting. Denied chest pain. Patient had been taking aspirin. She denied medical history. On evaluation at the ED, blood pressure was 90/60, pulse rate 104. Blood work showed hemoglobin of 10.5, hematocrit 30.8. BUN was elevated to 37. Creatinine was normal. INR 1.0. Urinalysis was negative. She was noted to be slightly hypotensive and tachycardic initially. She was given IV fluids as well as IV Pepcid. EKG showed normal sinus rhythm with out acute ST or T wave changes. Blood work showed elevated BUN. She was then admitted to telemetry for evaluation of GI bleed. She was initially placed on n.p.o. She was given IV hydration. GI was consulted. She was continued on n.p.o. and underwent EGD on 11/20/2018. EGD showed gastritis and a small gastric ulcer with clean base without any visible vessel or adherent clot. She was eventually started on clear liquid diet. She was continued on PPI. There was a drop in hemoglobin. On 11/21/2018, she underwent colonoscopy. Examination was incomplete due to. There was no evidence of active colonic bleeding. There was internal hemorrhoids noted. Diet was advanced. She was tolerating diet. She was eventually discharged. FINAL DIAGNOSES: Acute anemia present on admission Dehydration Gastric ulcer and gastritis Internal hemorrhoids DISPOSITION: Patient was discharged home. DISCHARGE MEDICATIONS: No known meds. DISCHARGE INSTRUCTIONS: Follow-up in a week. I have been assigned to complete a discharge summary on this account, I was not involved with the patient's management. Susan Serrano NP Nov 22, 2018 08:50
--- NOTE | 2018-11-27 10:47 | CDS Physician Query ---
Clarification is required for compliance, coding accuracy, and to reflect severity of illness for this patient Dear Dr. Johnathan Ocampo Date: 11/27/2018 Office Machine Servicer Apprentice/ CDS Name: Anju Oneill Clinical documentation states: 11/20 note: 8-year-old female presented after increased melanotic stool....Presents today with Hgb of 9.0...(1) Gastrointestinal hemorrhage (2) Anemia EGD: Small gastric ulcer clean base without any visible vessel or adherent clot Please clarify the specific type of anemia below: Acuity []Acute []Acute on Chronic []Chronic Etiology [] Blood loss [] ESRD [] Neoplastic disease [] Iron deficiency [] GI Bleeding [] Anemia of chronic disease [] Unable to determine [] Other: Present on Admission: [] Yes [] No [] Clinically Undetermined Physician signature Date Please also document in your Progress Notes and/or Discharge Summary and indicate if the condition was present on admission. MTDD
== END 2018-11-21 13:42 | disposition home or self-care (01) | DRG 378 ==
LOC: EMR 20:28 → EDBEDREQSVC 20:30 → 2E 22:07 → EDBEDREQ 22:46
PROC: 0DB78ZX Excision of Stomach, Pylorus, Via Natural or Artificial Opening Endoscopic, Diagnostic (ICD-10-PCS; principal; 2018-11-20 10:59)
PROC: 0DB68ZX Excision of Stomach, Via Natural or Artificial Opening Endoscopic, Diagnostic (ICD-10-PCS; principal; 2018-11-20 10:59)
PROC: 0DJD8ZZ Inspection of Lower Intestinal Tract, Via Natural or Artificial Opening Endoscopic (ICD-10-PCS; 2018-11-21)
DX: K25.4 Chronic or unspecified gastric ulcer with hemorrhage (principal); D62 Acute posthemorrhagic anemia; Z88.6 Allergy status to analgesic agent; K29.70 Gastritis, unspecified, without bleeding; E86.0 Dehydration; K64.8 Other hemorrhoids; Z88.8 Allergy status to other drugs, medicaments and biological substances
CPT/HCPCS: 36415; 80048; 80053; 81001; 84484; 85007; 85025; 85610; 85730; 86850; 86900; 86901; 93005; 94003; 94150; 96361; 96374; 99285; J2250; J2405; J8499